=== PATIENT | male | born 1975 | race Caucasian/White ===

== ENCOUNTER 2018-02-15 17:50 | Emergency (ER) | payer MEDICAID ==
[2018-02-15] MEDS: FLUORESCEIN STRIP RIGHT EYE (21:28)
== END 2018-02-15 21:30 | disposition home or self-care (01) ==
LOC: FTE 17:50
DX: H10.31 Unspecified acute conjunctivitis, right eye (principal)
CPT/HCPCS: 99283; Z7610

== ENCOUNTER 2018-11-14 21:25 | Emergency (ER) | payer MEDICAID ==
[2018-11-14] MEDS: HYDROCODONE/APAP (5/325) TAB PO (22:26)
== END 2018-11-14 22:39 | disposition home or self-care (01) ==
LOC: FTE 21:25
DX: K08.89 Other specified disorders of teeth and supporting structures (principal)
CPT/HCPCS: 99283; Z7502